=== PATIENT | male | born 1950 | race African-American/Black ===

== ENCOUNTER 2017-04-10 10:12 | Emergency (ER) | payer OTHER ==
[~2017-04-10] VITALS: Ht 170.2 cm; Wt 93.0 kg
--- NOTE | 2017-04-10 11:52 | ED GI/GU/ABDOMINAL COMPLAINT ---
History of Present Illness General Chief Complaint: General Adult Stated Complaint: CONSTIPATION,TROUBLE URINATING Source: patient, old records Exam Limitations: no limitations Vital Signs & Intake/Output Vital Signs & Intake/Output Vital Signs Date Time Temp Pulse Resp B/P B/P Pulse O2 O2 Flow FiO2 Mean Ox Delivery Rate 04/10 1357 98.0 90 16 168/88 95 Room Air 04/10 1225 Room Air 04/10 1033 98.3 94 15 178/109 94 Room Air Room Air Allergies Coded Allergies: No Known Allergies (04/10/17) Reconcile Medications Doxazosin Mesylate 4 MG TABLET 1 TAB PO DAILY HEART DISEASE (Reported) Labetalol HCl 100 MG TABLET 1 TAB PO BID HTN (Reported) Labetalol HCl 300 MG TABLET 1 TAB PO BID HTN (Reported) Lisinopril 10 MG TABLET 1 TAB PO DAILY HTN (Reported) Rosuvastatin Calcium (Crestor) 40 MG TABLET 1 TAB PO DAILY HIGH CHOLESTEROL ( Reported) Tamsulosin HCl (Flomax) 0.4 MG CAP.ER.24H 1 CAP PO DAILY BPH Triage Note: PT TO ED C/C OF DIFFICULTY URINATING FOR A COUPLE OF DAYS. PT REPORTS HE HAS THE URGE TO URINATE BUT IS UNABLE TO. HE TRIED TODAY AND YESTERDAY BUT ONLY SMALL AMOUNT HAS COME OUT. Triage Nurses Notes Reviewed? yes Onset: Abrupt Duration: day(s): (FEW), constant, continues in ED Timing: recent history Quality/Severity: cramping, mild Radiation: no radiation Activities at Onset: none No Modifying Factors: none HPI: 67-year-old male comes into emergency room with complaints of constipation and inability to urinate for the past few days. Patient reports that he gets a little bit of dribbling of urine. Denies any fever or vomiting. Denies any chest pain shortness of breath. History of previous stroke. No prior history of urinary issues in the past. Nothing seems to make the symptoms better or worse. Denies any other associated symptoms at this time. Past History Travel History Traveled to [place] past 21 day No Medical History Any Pertinent Medical History? 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 No Review of Systems Review of Systems Constitutional: Reports: no symptoms. EENTM: Reports: no symptoms. Respiratory: Reports: no symptoms. Cardiovascular: Reports: no symptoms. GI: Reports: see HPI. Genitourinary: Reports: see HPI. Musculoskeletal: Reports: no symptoms. Skin: Reports: no symptoms. Neurological/Psychological: Reports: no symptoms. Hematologic/Endocrine: Reports: no symptoms. Immunologic/Allergic: Reports: no symptoms. All Other Systems: Reviewed and Negative Physical Exam Physical Exam General Appearance: alert, awake Head: atraumatic, normal appearance Eyes: Bilateral: normal appearance. Ears, Nose, Throat, Mouth: hearing grossly normal, moist mucous membrane Neck: normal inspection, full range of motion Respiratory: normal breath sounds, no respiratory distress Cardiovascular: regular rate/rhythm Gastrointestinal: soft, tenderness Back: normal inspection Extremities: normal range of motion Neurologic/Psych: awake, alert, oriented x 3, normal gait, normal mood/affect Skin: intact, normal color Core Measures ACS in differential dx? No Severe Sepsis Present: No Septic Shock Present: No Progress Differential Diagnosis: AMI, appendicitis, biliary colic, diverticulitis, gastritis, hernia, ischemic bowel, pancreatitis, PUD/GERD, perforated viscous, pyelonephritis, ureterolithiasis, urinary retention, UTI/pyelo Plan of Care: Orders Procedure Date/time Status Add-on Test (ER Only) 04/10 1424 Active Lowery, Insertion/Removal/Asses 04/10 1143 Active CULTURE,URINE 04/10 1143 Active URINALYSIS 04/10 1143 Complete TROPONIN LEVEL 04/10 1143 Complete COMPREHENSIVE METABOLIC PANEL 04/10 1143 Complete CBC WITHOUT DIFFERENTIAL 04/10 1143 Complete EKG 04/10 1143 Active Laboratory Tests 04/10/17 1250: Urinalysis LIGHT H, Urine Color YEL, Urine Clarity CLEAR, Urine pH 6.5, Ur Specific [place] 1.025, Urine Protein 100 H, Urine Ketones NEG, Urine Nitrite NEG, Urine Bilirubin NEG, Urine Urobilinogen 0.2, Ur Leukocyte Esterase NEG, Ur Microscopic SEDIMENT EXAMINED, Urine RBC 3-5, Urine WBC RARE, Urine Bacteria RARE H, Urine Hemoglobin SMALL H, Urine Glucose NEG 04/10/17 1207: Anion Gap 12, Estimated GFR 51 L, BUN/Creatinine Ratio 16.4, Glucose 103 H, Calcium 9.7, Total Bilirubin 0.9, AST 37, ALT 44, Alkaline Phosphatase 46, Troponin I 0.07, Total Protein 6.8, Albumin 3.9, Globulin 2.9, Albumin/Globulin Ratio 1.3, CBC w Diff NO MAN DIFF REQ, RBC 4.99, MCV 86.0, MCH 29.1, RDW 14.3, MPV 9.7, Gran % 58.1, Lymphocytes % 28.0, Monocytes % 9.2, Eosinophils % 3.6, Basophils % 1.1, Absolute Granulocytes 4.5, Absolute Lymphocytes 2.2, Absolute Monocytes 0.7 H, Absolute Eosinophils 0.3, Absolute Basophils 0.1, PUBS MCHC 33.8 Microbiology 04/10 1250 URINE ROUT: Urine Culture - RECD Diagnostic Imaging: Viewed by Me: CT Scan. Discussed w/RAD: CT Scan. Radiology Impression: SERVICE DATE: 04/10/17-1143 EXAM TYPE: CAT - CT ABD & PELVIS W/O IV CONTRAS EXAMINATION: CT ABDOMEN AND PELVIS WITHOUT CONTRAST CLINICAL INFORMATION: 67-year-old male with abdominal pain. COMPARISON: None TECHNIQUE: Multidetector volumetric imaging was performed from the superior aspect of the liver through the pubic symphysis. Sagittal and coronal reformatted images were obtained on the technologist's workstation. DLP: 497.24 mGy-cm FINDINGS: LUNG BASES: Cardiac size appears mildly enlarged. No pericardial effusion. Mild atelectasis noted at the lung bases. There is a small pleural calcification at the left lung base. LIVER, GALLBLADDER, AND BILIARY TREE: The unenhanced liver is normal in size, shape, and attenuation. No focal hepatic lesion or biliary ductal dilatation is present. The gallbladder is unremarkable with no evidence of radiopaque gallstones, gallbladder wall thickening, or obvious pericholecystic inflammatory changes. PANCREAS: Unremarkable. SPLEEN: Unremarkable. ADRENAL GLANDS: Unremarkable. KIDNEYS AND URETERS: The kidneys are normal in size, shape, and attenuation. There is mild right hydronephrosis. No renal or ureteral calculi are identified. The ureters are decompressed. A 4.1 cm cyst is seen within the right interpolar region. A 2.5 cm cyst is noted within the left upper pole. No perinephric stranding. BLADDER: Distended with enlarged prostate gland indenting the bladder base. GASTROINTESTINAL TRACT: There is no bowel obstruction, free intraperitoneal air or fluid. Sigmoid diverticulosis is present without CT evidence of acute diverticulitis. There is bowel thickening involving the transverse and proximal descending colon, however, evaluation is limited to underdistention. No pericolonic inflammatory changes. ABDOMINAL WALL: No significant hernia is appreciated. LYMPH NODES: No mesenteric, retroperitoneal or pelvic lymphadenopathy. VASCULAR: Nonaneurysmal abdominal aorta containing mild atelectatic calcification. PELVIC VISCERA: Markedly enlarged prostate gland measuring 7.0 x 5.9 x 7.8 cm. Seminal vesicles are grossly unremarkable. No pelvic free fluid. OSSEOUS STRUCTURES: No aggressive osseous lesions. Degenerative changes are seen within the lower lumbar spine and sacroiliac joints. Punctate sclerotic foci noted within the femoral heads, likely representing bone islands. IMPRESSION: 1. Mild right hydronephrosis. No obstructing calcified stone identified. Bilateral renal cysts. 2. Bowel wall thickening of the distal transverse and proximal descending colon. Finding is nonspecific and may be related to underdistention and/or colitis. No pericolonic inflammatory stranding identified. Clinical correlation recommended. 3. Diverticulosis without CT evidence of acute diverticulitis. 4. Markedly enlarged prostate gland. 5. Other findings as described. DICTATED BY: JULES OSWALD DO DATE/TIME DICTATED:04/10/171224 ARMATURE INSPECTOR:DANISH DATE/TIME TRANSCRIBED:04/10/171224 Initial ED EKG: normal intervals, normal p-waves, normal sinus rhythm, rate (80) , nonspecific ST T wave chg Departure Departure Disposition: HOME OR SELF CARE Condition: Stable Clinical Impression Primary Impression: Bladder outlet obstruction Secondary Impressions: Urinary retention Referrals: GERALDINE DAVIS,IRLANDA GONZALEZ MD,ROSALIND Cam (PCP/Family) Additional Instructions: Follow-up with urologist provided. Keep catheter in place. Return to the emergency room if any concerns worsening symptoms. Please go over all results of today's visit with your primary care doctor. Contact your primary care doctor to let them know you were here in the emergency room. There may be nonspecific findings which may not be related to your visit today here in the emergency room but may require further evaluation and chronic monitoring by your primary care doctor. If you had a laceration today the chance of foreign body always remains. You should follow-up with your primary care doctor for recheck in 3-5 days for a wound check. If you had an x-ray done there is a chance that a fracture could have been missed on initial read and you should follow-up with your primary care doctor for repeat x-rays if symptoms persist. If your blood pressure was elevated here in the emergency room please have rechecked by her primary care doctor within the next 48 hours by your primary care doctor. If you were prescribed a narcotic here in the emergency room or any type of controlled substances you're not allowed to drive while taking this medication or operate any type of heavy machinery. Narcotics can make you feel lightheaded dizziness nausea and can cause constipation. You may need to warp picker a stool softener. Thank you for choosing [facility] emergency room. Please return to the emergency room immediately if you have any other concerns worsening of symptoms. Departure Forms: Customer Survey General Discharge Information Prescriptions: Current Visit Scripts Tamsulosin HCl (Flomax) 1 CAP PO DAILY #14 CAP Comments 04/10/2017 3:43:37 PM Case discussed with Dr. Gatica. Patient seen by Dr. Gatica. Patient has no chest pain or shortness of breath. EKG was ordered secondary to the patient's age and complaints of abdominal pain. Nonspecific changes. Patient has an enlarged prostate. Some hydronephrosis on the right side which is likely secondary to bladder outlet obstruction from enlarged prostate. Lowery catheter left in place. Patient referred to urologist. He clinically looks well otherwise. Go over results of CAT scan with primary care doctor as well as other results. Understands and agrees with plan of care. EKG was reviewed with Dr. Gatica. At this time patient is safe for discharge. Negative troponin.
[2017-04-10 12:24] LABS: ABSOLUTE BASOPHIL COUNT 0.1 /CUMM (0.0-0.2); ABSOLUTE EOSINOPHIL COUNT 0.3 /CUMM (0.0-0.7); ABSOLUTE GRANULOCYTE CT 4.5 /CUMM (1.4-6.5); ABSOLUTE LYMPH COUNT 2.2 /CUMM (1.2-3.4); ABSOLUTE MONOCYTE COUNT 0.7 /CUMM (0.10-0.60); BASOPHIL % 1.1 % (0.0-2.0); EOSINOPHIL % 3.6 % (0-5); GRANULOCYTE % 58.1 % (42.2-75.2); HEMATOCRIT 42.9 % (42-52); MEAN CORPUSCULAR HGB 29.1 PG (27.0-31.0); MEAN CORPUSCULAR HGB CONC 33.8 G/DL (33.0-37.0); MEAN PLATELET VOLUME 9.7 FL (7.4-10.4); PLATELET COUNT 224 /CUMM (130-400); RBC DISTRIBUTION WIDTH 14.3 % (11.5-14.5); RED BLOOD CELL CT 4.99 /CUMM (4.70-6.10); WHITE BLOOD CELL COUNT 7.7 /CUMM (4.8-10.8)
--- NOTE | 2017-04-10 12:46 | CT SCAN REPORT ---
EXAMINATION: CT ABDOMEN AND PELVIS WITHOUT CONTRAST CLINICAL INFORMATION: 67-year-old male with abdominal pain. COMPARISON: None TECHNIQUE: Multidetector volumetric imaging was performed from the superior aspect of the liver through the pubic symphysis. Sagittal and coronal reformatted images were obtained on the technologist's workstation. DLP: 497.24 mGy-cm FINDINGS: LUNG BASES: Cardiac size appears mildly enlarged. No pericardial effusion. Mild atelectasis noted at the lung bases. There is a small pleural calcification at the left lung base. LIVER, GALLBLADDER, AND BILIARY TREE: The unenhanced liver is normal in size, shape, and attenuation. No focal hepatic lesion or biliary ductal dilatation is present. The gallbladder is unremarkable with no evidence of radiopaque gallstones, gallbladder wall thickening, or obvious pericholecystic inflammatory changes. PANCREAS: Unremarkable. SPLEEN: Unremarkable. ADRENAL GLANDS: Unremarkable. KIDNEYS AND URETERS: The kidneys are normal in size, shape, and attenuation. There is mild right hydronephrosis. No renal or ureteral calculi are identified. The ureters are decompressed. A 4.1 cm cyst is seen within the right interpolar region. A 2.5 cm cyst is noted within the left upper pole. No perinephric stranding. BLADDER: Distended with enlarged prostate gland indenting the bladder base. GASTROINTESTINAL TRACT: There is no bowel obstruction, free intraperitoneal air or fluid. Sigmoid diverticulosis is present without CT evidence of acute diverticulitis. There is bowel thickening involving the transverse and proximal descending colon, however, evaluation is limited to underdistention. No pericolonic inflammatory changes. ABDOMINAL WALL: No significant hernia is appreciated. LYMPH NODES: No mesenteric, retroperitoneal or pelvic lymphadenopathy. VASCULAR: Nonaneurysmal abdominal aorta containing mild atelectatic calcification. PELVIC VISCERA: Markedly enlarged prostate gland measuring 7.0 x 5.9 x 7.8 cm. Seminal vesicles are grossly unremarkable. No pelvic free fluid. OSSEOUS STRUCTURES: No aggressive osseous lesions. Degenerative changes are seen within the lower lumbar spine and sacroiliac joints. Punctate sclerotic foci noted within the femoral heads, likely representing bone islands. IMPRESSION: 1. Mild right hydronephrosis. No obstructing calcified stone identified. Bilateral renal cysts. 2. Bowel wall thickening of the distal transverse and proximal descending colon. Finding is nonspecific and may be related to underdistention and/or colitis. No pericolonic inflammatory stranding identified. Clinical correlation recommended. 3. Diverticulosis without CT evidence of acute diverticulitis. 4. Markedly enlarged prostate gland. 5. Other findings as described.
[2017-04-10 13:57] VITALS: BP 168/88
[2017-04-10] MEDS ORDERED: LISINOPRIL10 M1 PO (14:02)
[2017-04-10] MEDS ORDERED: LABETALOL HCL100 M1 PO (14:02)
[2017-04-10] MEDS ORDERED: LABETALOL HCL300 M1 PO (14:03)
[2017-04-10] MEDS ORDERED: DOXAZOSIN MESYLA4 M1 PO (14:04)
[2017-04-10] MEDS ORDERED: CRESTOR40 M2 PO (14:05)
[2017-04-10] MEDS ORDERED: FLOMAX0.4 M1 PO (14:26)
== END 2017-04-10 14:58 ==
LOC: ERH 10:12
PROVIDERS: Physician Assistant Medical
DX: N32.0 Bladder-neck obstruction (principal); R33.9 Retention of urine, unspecified
CPT/HCPCS: 74176; 81001; 87086; 93005; 93010; J2550